=== PATIENT | female | born 2000 | race Caucasian/White ===

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

== ENCOUNTER 2023-08-19 23:33 | Inpatient (IN) | payer BC ==
[2023-08-20] MEDS ORDERED: Sodium Chloride 0.9% 10 ML Syringe FLUSH PRN (00:03)
[2023-08-20] MEDS ORDERED: Ondansetron 4 MG/2 ML SDV IVPUSH PRN (00:03)
[2023-08-20] MEDS ORDERED: Nalbuphine 10 MG/0.5 ML Syringe IVPUSH PRN (00:03)
[2023-08-20] MEDS ORDERED: Calcium Carbonate 500 MG Tab.Chew PO PRN (00:03)
[2023-08-20] MEDS ORDERED: Lidocaine 1% 50 ML MDV INJECT ONE (00:03)
[2023-08-20] MEDS ORDERED: Lactated Ringers 1,000 ML IV SCH (00:15)
[2023-08-20] MEDS ORDERED: Oxytocin/Lactated Ringers 10 UNIT/1,000 ML BAG IV SCH ×2 (00:15)
[2023-08-20 00:33] LABS: BASOPHILS PERCENT AUTO 0.3 % (0.0-1.0); EOSINOPHILS ABSOLUTE AUTO 0.1 K/mm3 (0.0-0.4); EOSINOPHILS PERCENT AUTO 0.7 % (0.0-6.0); HEMATOCRIT 37.2 % (37.0-47.0); HEMOGLOBIN 12.7 gm/dl (12.0-16.0); IMMATURE GRAN ABSOLUTE AUTO 0.09 K/mm3 (0.00-0.05); IMMATURE GRAN PERCENT AUTO 0.6 % (0.0-0.4); LYMPHOCYTES ABSOLUTE AUTO 2.1 K/mm3 (1.0-4.8); LYMPHOCYTES PERCENT AUTO 13.7 % (24.0-44.0); MEAN CORPUSCULAR HEMOGLOBIN 28.2 pg (28.0-32.0); MEAN CORPUSCULAR HGB CONC 34.1 g/dl (32.0-36.0); MEAN CORPUSCULAR VOLUME 82.5 fl (83.0-99.0); MEAN PLATELET VOLUME 9.5 fl (9.4-12.3); MONOCYTES PERCENT AUTO 13.1 % (0.0-8.0); NEUTROPHILS ABSOLUTE AUTO 10.7 K/mm3 (1.8-7.7); NEUTROPHILS PERCENT AUTO 71.6 % (41.0-71.0); PLATELET COUNT,PLT 208 K/mm3 (150-400); RED BLOOD CELL COUNT 4.51 M/mm3 (4.10-5.30); WHITE BLOOD CELL COUNT,WBC 14.91 K/mm3 (3.9-11.3)
[2023-08-20 01:16] LABS: SLIDE REVIEW ABNORMAL SMEAR
[2023-08-20] MEDS ORDERED: diphenhydrAMINE 50 MG/ML SDV IVPUSH PRN (03:46)
[2023-08-20] MEDS ORDERED: Bupivacaine/fentaNYL/NS 100 ML Bag EPIDUR PRN (03:46)
[2023-08-20] MEDS ORDERED: ePHEDrine 50 MG/ML SDV IVPUSH PRN (03:46)
[2023-08-20] MEDS ORDERED: fentaNYL 100 MCG/2 ML SDV EPIDUR PRN (03:46)
[2023-08-20] MEDS ORDERED: Bupivacaine 0.25% 10 ML SDV ONE (04:00)
[2023-08-20] MEDS ORDERED: Witch Hazel Medicated Pads 40/Jar TOP PRN (08:25)
[2023-08-20] MEDS ORDERED: Benzocaine/Menthol 20%-0.5% Spray 78 GM Cannister TOP PRN (08:25)
[2023-08-20] MEDS ORDERED: Docusate Sodium 100 MG Cap PO PRN (09:00)
[2023-08-20] MEDS: Prenatal Multivitamin with Calcium/Folic Acid/Iron Tab PO SCH (11:23)
[2023-08-20] MEDS: Sodium Chloride 0.9% 10 ML Syringe FLUSH SCH (11:23)
[2023-08-20] MEDS: Ibuprofen 600 MG Tab PO PRN (16:38)
[2023-08-20] MEDS: Acetaminophen 325 MG Tab PO PRN (22:15)
[2023-08-21] MEDS: Ibuprofen 600 MG Tab PO PRN ×3 (01:03→17:24)
[2023-08-21] MEDS: Sodium Chloride 0.9% 10 ML Syringe FLUSH SCH (02:03)
[2023-08-21 06:01] LABS: HEMATOCRIT 31.6 % (37.0-47.0); MEAN CORPUSCULAR HEMOGLOBIN 27.9 pg (28.0-32.0); MEAN CORPUSCULAR HGB CONC 33.5 g/dl (32.0-36.0); MEAN CORPUSCULAR VOLUME 83.2 fl (83.0-99.0); MEAN PLATELET VOLUME 9.2 fl (9.4-12.3); PLATELET COUNT,PLT 159 K/mm3 (150-400); WHITE BLOOD CELL COUNT,WBC 13.95 K/mm3 (3.9-11.3)
[2023-08-21 06:09] LABS: HEMOGLOBIN 10.6 gm/dl (12.0-16.0)
[2023-08-21] MEDS: Acetaminophen 325 MG Tab PO PRN ×3 (06:13→21:45)
[2023-08-21] MEDS: Prenatal Multivitamin with Calcium/Folic Acid/Iron Tab PO SCH (09:04)
[2023-08-22] MEDS: Ibuprofen 600 MG Tab PO PRN (02:41)
[2023-08-22 13:54] VITALS: BP 123/76; PULSE 104
== END 2023-08-22 10:30 | disposition home or self-care (01) | DRG 560 ==
LOC: JD.OBCHECK 23:33 → JD.OB 23:36 → JD.OBCHECK 08-20 00:05 → JD.OB 08-20 00:06 → OBSVTOIN 08-20 07:16 → JD.OB 08-20 07:17
PROVIDERS: ADMIT Family Medicine; ATTEND Family Medicine
PROC: 10E0XZZ Delivery of Products of Conception, External Approach (ICD-10-PCS; principal; 2023-08-20)
PROC: 0W8NXZZ Division of Female Perineum, External Approach (ICD-10-PCS; 2023-08-20)
PROC: 3E0R3BZ Introduction of Anesthetic Agent into Spinal Canal, Percutaneous Approach (ICD-10-PCS; 2023-08-20)
PROC: 00HU33Z Insertion of Infusion Device into Spinal Canal, Percutaneous Approach (ICD-10-PCS; 2023-08-20)
DX: O42.02 Full-term premature rupture of membranes, onset of labor within 24 hours of rupture (principal); Z37.0 Single live birth; O76 Abnormality in fetal heart rate and rhythm complicating labor and delivery; Z3A.38 38 weeks gestation of pregnancy; Z91.013 Allergy to seafood; Z91.018 Allergy to other foods; Z90.49 Acquired absence of other specified parts of digestive tract
CPT/HCPCS: 36415; 51702; 59025; 59409; 85025; 85027; 86592; A9270-GY; J2300; J2590; J3010; J3490; J7120